=== PATIENT | female | born 1970 | race Caucasian/White ===

== ENCOUNTER 2021-01-14 03:29 | Emergency (ER) | payer OTHER ==
[2021-01-14] MEDS ORDERED: Acetaminophen 500 MG Tab PO ONE (03:51)
[2021-01-14] MEDS ORDERED: Bacitracin Oint 1 GM U/D Packet TOP ONE (03:51)
--- NOTE | 2021-01-14 03:57 | EDM.PDOC ---
ED HPI GENERAL MEDICAL PROBLEM - General Chief Complaint: Laceration Stated Complaint: FALL VIA [place] Time Seen by Provider: 01/14/21 03:40 Source of Information: Reports: Patient History Limitations: Reports: No Limitations - History of Present Illness INITIAL COMMENTS - FREE TEXT/NARRATIVE: Jazz is a 50-year-old female presenting to the ED via [facility] for evaluation of a laceration to her chin. The patient had been drinking tonight and lost consciousness causing her to fall down 3 steps in her house striking her face, chin, and chest on the floor. The patient sustained a laceration to the chin measuring a total of 3.2 cm in length with an open gaping wound 1.8 cm and the remainder being superficial and not through the dermis. The patient is also complaining of anterior chest pain over the sternum and bilateral breasts. The pain worsens with inspiration and with palpation of the chest. There is no pain with compression of the lateral chest bilaterally. Patient is very anxious, nervous, and upset. Patient is on Xarelto for factor V Leiden. She takes 10 mg of Xarelto daily. She denies any headache. chest pain Pain Score (Numeric/FACES): 9 - Related Data Allergies Allergy/AdvReac Type Severity Reaction Status Date / Time diphenhydramine Allergy Tachycardia Verified 01/14/21 03:33 [From Benadryl] Home Meds: Home Meds Rivaroxaban [Xarelto] 10 mg PO DAILY 01/14/21 [History] atenoloL [Atenolol] 25 mg PO ASDIRECTED PRN 01/14/21 [History] atenoloL [Atenolol] 25 mg PO BID 01/14/21 [History] ED ROS GENERAL - Review of Systems Review Of Systems: See Below Constitutional: Reports: No Symptoms HEENT: Reports: Other (3.2 cm laceration to the chin) Respiratory: Reports: No Symptoms Cardiovascular: Reports: Chest Pain (Bilateral anterior chest pain worsening with inspiration or with palpation of the anterior chest) Endocrine: Reports: No Symptoms GI/Abdominal: Reports: No Symptoms : Reports: No Symptoms Musculoskeletal: Reports: No Symptoms Skin: Reports: Wound (3.2 cm laceration to the chin) Neurological: Reports: Syncope (Patient is intoxicated and "blacked out" causing her to fall down 3 steps in her house.) Psychiatric: Reports: Anxiety Hematologic/Lymphatic: Reports: Other (Patient is Xarelto 10 mg daily for factor V Leiden deficiency) Immunologic: Reports: No Symptoms ED EXAM, SKIN/RASH Exam: See Below Exam Limited By: No Limitations General Appearance: Alert, Anxious, Mild Distress, Moderate Distress Eye Exam: Bilateral Eye: Conjunctival Injection, EOMI, PERRL Throat/Mouth: Normal Inspection, Normal Oropharynx, Normal Voice, No Airway Compromise Head: Normocephalic, Other (3.2 cm laceration to the chin with 1.8 cm being through the dermis and widely gapping in the remainder being superficial.) Neck: Normal Inspection, Supple Respiratory/Chest: No Respiratory Distress, Lungs Clear, Normal Breath Sounds, Other (Tenderness of the anterior chest to palpation. There is no crepitus. Compression of the lateral chest bilaterally does not elicit pain. Tenderness over both breasts.) Cardiovascular: Normal Peripheral Pulses, Regular Rate, Rhythm, No Murmur Peripheral Pulses: 2+: Radial (L), Radial (R) GI/Abdominal: Normal Bowel Sounds, Soft, Non-Tender Extremities: Normal Inspection, Normal Range of Motion Neurological: Alert, Oriented, Normal Cognition, No Motor/Sensory Deficits Psychiatric: Anxious Skin: Warm, Wound/Incision (Laceration to the chin measuring 3.2 cm with 1.8 cm being through the dermis and gapping widely and the remainder being superficial.) Location, Skin: Face (Chin) Characteristics: Linear ED SKIN PROCEDURES - Laceration/Wound Repair Midline Face Appearance: Subcutaneous (3.2 cm laceration with 1.8 cm being subcutaneous and the remainder being superficial), Mildly Contaminated Distal NVT: Neuro & Vascular Intact Anesthetic Type: Local Local Anesthesia - Lidocaine (Xylocaine): 1% with EPI Local Anesthetic Volume: 3cc Skin Prep: Other (Soap and water) Exploration/Debridement/Repair: Wound Explored, In a Bloodless Field, Explored to Base Closed with: Sutures, Dermabond Lac/Wound length In cm: 1.8 Suture Size: 5-0 # of Sutures: 5 Suture Type: Nylon, Interrupted Sterile Dressing Applied: Nurse Tetanus Status Addressed: Yes Complications: No Course - Vital Signs Last Recorded V/S: Last Vital Signs Temp 36.4 C 01/14/21 03:39 Pulse 71 01/14/21 03:39 Resp 15 01/14/21 03:39 BP 133/81 01/14/21 03:39 Pulse Ox 98 01/14/21 03:39 - Orders/Labs/Meds Orders: Active Orders 24 hr Category Date Time Status Vaccines to be Administered [RC] PER UNIT ROUTINE Care 01/14/21 04:02 Ordered Chest 2V [CR] Stat Exams 01/14/21 03:52 Ordered Hand Comp Min 3V Rt [CR] Stat Exams 01/14/21 04:11 Ordered Meds: Medications Discontinued Medications Generic Name Dose Route Start Last Admin Trade Name Shreyas PRN Reason Stop Dose Admin Acetaminophen 1,000 mg 01/14/21 03:51 01/14/21 03:59 Acetaminophen 500 Mg Tab PO 01/14/21 03:52 1,000 mg ONETIME ONE Administration Bacitracin 1 dose 01/14/21 03:51 01/14/21 03:59 Bacitracin Oint 1 Gm U/D Packet TOP 01/14/21 03:52 1 dose ONETIME ONE Administration Diphtheria/Tetanus/Acell Pertussis 0.5 ml 01/14/21 04:02 Diphtheria,Pertussis(Acell),Tetanus Vaccine 0.5 Ml Syringe IM 01/14/21 04:03 .ONCE ONE - Radiology Interpretation Free Text/Narrative:: I reviewed the two-view chest x-ray which shows no acute osseous abnormalities. There is no infiltrates or lung abnormalities. No evidence for pneumothorax. I reviewed the three-view x-ray of the left hand showing no acute osseous abnormalities. - Re-Assessments/Exams Free Text/Narrative Re-Assessment/Exam: 01/14/21 04:02 it appears that the patient has not had a tetanus booster since before 1977. We will booster this today. The sutures will need to be removed in 5 days which the patient can go to the clinic or return to the ER to have them removed. 01/14/21 04:41 x-ray of the chest and of the left hand were unremarkable for any osseous abnormalities. Is likely are both contusions. We discussed management of her pain with Tylenol, icing to reduce swelling, and rest. Departure - Departure Time of Disposition: 04:42 Disposition: Home, Self-Care 01 Clinical Impression: Fall down stairs Qualifiers: Encounter type: initial encounter Qualified Code(s): W10.8XXA - Fall (on) (from) other stairs and steps, initial encounter Laceration of skin of chin Qualifiers: Encounter type: initial encounter Qualified Code(s): S01.81XA - Laceration without foreign body of other part of head, initial encounter Contusion, chest wall Qualifiers: Encounter type: initial encounter Laterality: unspecified laterality Qualified Code(s): S20.219A - Contusion of unspecified front wall of thorax, initial encounter Contusion of left hand including fingers Qualifiers: Encounter type: initial encounter Qualified Code(s): S60.222A - Contusion of left hand, initial encounter; S60.00XA - Contusion of unspecified finger without damage to nail, initial encounter - Discharge Information Instructions: Fall Prevention in the Home, Adult, [id number], Laceration Care, Adult, [id number], Blunt Chest Trauma, Hand Contusion Referrals: PCP,None [Primary Care Provider] - Forms: ED Department Discharge Care Plan Goals: The laceration to your chin was repaired using 5 sutures and Dermabond. Please do not pick at the Dermabond it will wear off over the course of the next 5 to 7 days. The sutures in your chin will need to be removed in 5 days which can either be done at the [facility], the [facility] walk-in clinic, or you may return to the ER. In addition to the laceration of the chin, you also have sustained a significant contusion or bruising to your chest from your fall. Continue to take Tylenol for pain control. There was no evidence on your x-rays of any fracture. This will likely take 1 to 2 weeks to fully resolve. Ice may help lessen the swelling and pain. Sepsis Event Note (ED) - Evaluation Sepsis Screening Result: No Definite Risk - Focused Exam Vital Signs: Vital Signs Temp Pulse Resp BP Pulse Ox 01/14/21 03:39 36.4 C 71 15 133/81 98 01/14/21 03:37 36.4 C 71 15 133/81 98 - Problem List & Annotations (1) Contusion, chest wall SNOMED Code(s): 21988250 Code(s): S20.219A - CONTUSION OF UNSPECIFIED FRONT WALL OF THORAX, INIT ENCNTR Status: Acute Priority: Medium Current Visit: Yes Qualifiers: Encounter type: initial encounter Laterality: unspecified laterality Q ualified Code(s): S20.219A - Contusion of unspecified front wall of thorax, initial encounter (2) Fall down stairs SNOMED Code(s): 682861740 Code(s): W10.8XXA - FALL (ON) (FROM) OTHER STAIRS AND STEPS, INITIAL ENCOUNTER Status: Acute Priority: Medium Current Visit: Yes Qualifiers: Encounter type: initial encounter Qualified Code(s): W10.8XXA - Fall (on) (from) other stairs and steps, initial encounter (3) Laceration of skin of chin SNOMED Code(s): 17836026100850018, 37158143032981433 Code(s): S01.81XA - LACERATION W/O FOREIGN BODY OF OTH PART OF HEAD, INIT ENCNTR Status: Acute Priority: Medium Current Visit: Yes Qualifiers: Encounter type: initial encounter Qualified Code(s): S01.81XA - Laceration without foreign body of other part of head, initial encounter (4) Contusion of left hand including fingers SNOMED Code(s): 2789712 Code(s): S60.222A - CONTUSION OF LEFT HAND, INITIAL ENCOUNTER; S60.00XA - CONTUSION OF UNSP FINGER WITHOUT DAMAGE TO NAIL, INIT ENCNTR Status: Acute Priority: Medium Current Visit: Yes Qualifiers: Encounter type: initial encounter Qualified Code(s): S60.222A - Contusion of left hand, initial encounter; S60.00XA - Contusion of unspecified finger without damage to nail, initial encounter - Problem List Review Problem List Initiated/Reviewed/Updated: Yes - My Orders Last 24 Hours: My Active Orders 01/14/21 03:52 Chest 2V [CR] Stat 01/14/21 04:02 Vaccines to be Administered [RC] PER UNIT ROUTINE 01/14/21 04:11 Hand Comp Min 3V Rt [CR] Stat - Assessment/Plan Last 24 Hours: My Active Orders 01/14/21 03:52 Chest 2V [CR] Stat 01/14/21 04:02 Vaccines to be Administered [RC] PER UNIT ROUTINE 01/14/21 04:11 Hand Comp Min 3V Rt [CR] Stat
[2021-01-14] MEDS ORDERED: Diphtheria,Pertussis(Acell),Tetanus Vaccine 0.5 ML Syringe IM ONE (04:02)
--- NOTE | 2021-01-14 05:17 | CRLCR ---
For Patients: As a result of the Cures Act, medical imaging exams and procedure reports are released immediately into your electronic medical record. You may view this report before your referring provider. If you have questions, please contact your health care provider. INDICATION: Pain at the base of the thumb after fall. COMPARISON: None available. TECHNIQUE: The right hand is examined with PA, lateral, and oblique views. FINDINGS: There is no sign of fracture or dislocation. The soft tissues are normal in appearance without sign of radio-opaque foreign body. No degenerative disease is seen. IMPRESSION: Normal right hand. Dictated by Perico Ferrara MD @ 01/14/2021 5:16:23 AM (Electronically Signed)
--- NOTE | 2021-01-14 05:17 | CRLCR ---
For Patients: As a result of the Century Cures Act, medical imaging exams and procedure reports are released immediately into your electronic medical record. You may view this report before your referring provider. If you have questions, please contact your health care provider. INDICATION: Chest pain after fall. COMPARISON: None available. FINDINGS: PA and lateral views of the chest were obtained. The lungs are clear. No focal or diffuse infiltrates are present. The heart is normal in size. The mediastinum is normal in appearance. The osseous structures are normal in appearance for the patient`s age. IMPRESSION: Normal chest 2 views. Dictated by Perico Ferrara MD @ 01/14/2021 5:15:20 AM (Electronically Signed)
== END 2021-01-14 07:01 | disposition home or self-care (01) ==
LOC: JP.ED 03:29
DX: S01.81XA Laceration without foreign body of other part of head, initial encounter (principal); S20.212A Contusion of left front wall of thorax, initial encounter; S20.211A Contusion of right front wall of thorax, initial encounter; S60.222A Contusion of left hand, initial encounter; Z79.01 Long term (current) use of anticoagulants; Z88.8 Allergy status to other drugs, medicaments and biological substances; Z23 Encounter for immunization; W10.8XXA Fall (on) (from) other stairs and steps, initial encounter; W22.09XA Striking against other stationary object, initial encounter; Y92.009 Unspecified place in unspecified non-institutional (private) residence as the place of occurrence of the external cause
CPT/HCPCS: 12013; 71046; 73130; 90471; 90715; 99284; A9270

== ENCOUNTER 2021-04-16 12:52 | Emergency (ER) | payer OTHER ==
[2021-04-16] MEDS ORDERED: Alum Hydrox/Mag Hydrox/Simeth 15 ML, Lidocaine 2% 15 ML PO ONE ×2 (13:17)
--- NOTE | 2021-04-16 13:29 | EDM.PDOC ---
ED HPI GENERAL MEDICAL PROBLEM - General Chief Complaint: Abdominal Pain Stated Complaint: BLOOD COMING OUT OF HER MOUTH Time Seen by Provider: 04/16/21 12:55 Source of Information: Reports: Patient, Family History Limitations: Reports: No Limitations - History of Present Illness INITIAL COMMENTS - FREE TEXT/NARRATIVE: 50-year-old female who was in her normal state of health, suddenly had the taste of blood in her mouth, and spit up a small amount of blood. She then developed cramping and spasms in her upper abdomen which has lasted just over an hour. Still some mild nausea but no vomiting. She has panic attacks and is extremely anxious on arrival. She does have a history of gastric ulcers and is on no medications for her stomach. She is on Xarelto for "blood clots". She is a smoker. No shortness of breath or cough, no diarrhea or dark stools Onset: Sudden Location: Reports: Abdomen (Discomfort and is in her epigastric area of the abdomen) Quality: Reports: Pressure Severity: Mild Associated Symptoms: Reports: Malaise, Nausea/Vomiting (One episode of spitting up blood with nausea), Other (Extremely anxious). Denies: Confusion, Chest Pain, Cough, Fever/Chills Middle Abdomen Pain Score (Numeric/FACES): 8 - Related Data Allergies Allergy/AdvReac Type Severity Reaction Status Date / Time diphenhydramine Allergy Tachycardia Verified 01/14/21 03:33 [From Benadryl] Home Meds: Home Meds Rivaroxaban [Xarelto] 10 mg PO DAILY 01/14/21 [History] atenoloL [Atenolol] 25 mg PO ASDIRECTED PRN 01/14/21 [History] atenoloL [Atenolol] 25 mg PO BID 01/14/21 [History] Past Medical History HEENT History: Reports: Impaired Vision Other HEENT History: contact lenses Cardiovascular History: Reports: Hypertension, Other (See Below) Other Cardiovascular History: lower extremity edema Respiratory History: Reports: Asthma Musculoskeletal History: Reports: Fracture Psychiatric History: Reports: Anxiety Hematologic History: Reports: Anticoagulation Therapy, Other (See Below) Other Hematologic History: Factor five liden - Infectious Disease History Infectious Disease History: Reports: Chicken Pox - Past Surgical History Musculoskeletal Surgical History: Reports: Other (See Below) Other Musculoskeletal Surgeries/Procedures:: left foot Social & Family History - Tobacco Use Tobacco Use Status *Q: Current Every Day Tobacco User Years of Tobacco use: 2 Packs/Tins Daily: 0.5 - Caffeine Use Caffeine Use: Reports: Coffee - Recreational Drug Use Recreational Drug Use: No ED ROS GENERAL - Review of Systems Review Of Systems: See Below Constitutional: Reports: Malaise. Denies: Fever, Chills HEENT: Denies: Throat Pain Respiratory: Reports: No Symptoms Cardiovascular: Reports: No Symptoms GI/Abdominal: Reports: Abdominal Pain, Hematemesis, Nausea : Reports: No Symptoms Musculoskeletal: Reports: No Symptoms Skin: Reports: Diaphoresis (An episode of diaphoresis at home, resolved) Neurological: Denies: Headache Psychiatric: Reports: Anxiety ED EXAM, GI/ABD - Physical Exam Exam: See Below Exam Limited By: No Limitations General Appearance: Alert, Anxious Eyes: Bilateral: Normal Appearance (No jaundice, well hydrated) Ears: Normal TMs Throat/Mouth: Normal Inspection, Other (No lesion or evidence of bleeding in the throat) Head: Atraumatic Neck: No: Lymphadenopathy (R), Lymphadenopathy (L) Respiratory/Chest: No Respiratory Distress, Lungs Clear Cardiovascular: Regular Rate, Rhythm GI/Abdominal Exam: Normal Bowel Sounds, Soft, Tender (Reacts with some tenderness directly over the epigastric area but no guarding or rebound, no pain over the lower abdomen) Extremities: Normal Inspection Neurological: Alert, Oriented, No Motor/Sensory Deficits Psychiatric: Anxious Skin Exam: Warm, Dry Course - Vital Signs Last Recorded V/S: Last Vital Signs Temp 97.9 F 04/16/21 13:04 Pulse 73 04/16/21 13:04 Resp 18 04/16/21 13:04 BP 141/87 H 04/16/21 13:04 Pulse Ox 99 04/16/21 13:04 - Orders/Labs/Meds Labs: Laboratory Tests 04/16/21 04/16/21 Range/Units 13:35 13:35 WBC 6.0 (4.5-11.0) K/uL RBC 4.76 (3.30-5.50) M/uL Hgb 16.4 H (12.0-15.0) g/dL Hct 45.4 (36.0-48.0) % MCV 95 (80-98) fL MCH 35 H (27-31) pg MCHC 36 (32-36) % Plt Count 195 (150-400) K/uL Neut % (Auto) 72.0 H (36-66) % Lymph % (Auto) 16.9 L (24-44) % [place] % (Auto) 9.2 H (2-6) % Eos % (Auto) 1.2 L (2-4) % Baso % (Auto) 0.7 (0-1) % Sodium 132 L (140-148) mmol/L Potassium 4.1 (3.6-5.2) mmol/L Chloride 95 L (100-108) mmol/L Carbon Dioxide 25 (21-32) mmol/L Anion Gap 16.1 H (5.0-14.0) mmol/L BUN 9 (7-18) mg/dL Creatinine 0.8 (0.6-1.0) mg/dL Est Cr Clr Drug Dosing 84.87 mL/min Estimated GFR (MDRD) > 60 (>60) Glucose 122 H (74-106) mg/dL Calcium 8.9 (8.5-10.1) mg/dL Lipase 100 (73-393) U/L Meds: Medications Discontinued Medications Generic Name Dose Route Start Last Admin Trade Name Freq PRN Reason Stop Dose Admin Al Hydroxide/Mg Hydroxide 15 0 ml 04/16/21 13:17 04/16/21 13:25 ml/ Lidocaine HCl 15 ml PO 04/16/21 13:18 30 ml ONETIME ONE Administration - Re-Assessments/Exams Free Text/Narrative Re-Assessment/Exam: 04/16/21 14:15 Patient had complete and instant relief with a GI cocktail. She had no further nausea or vomiting. I recommended she take 40 mg of Prilosec daily for 5 days, then 20 mg a day for 1 full month. She should recheck with her primary provider in the next 1 to 2 weeks to consider a hemoglobin rechecked. She can return to the emergency room at any time if dark stools, persistent emesis, pallor or lightheaded feelings. 04/16/21 16:20 White count was 6000, hemoglobin 16.4, chemistry profile was reassuring including a BUN which was normal which goes against any long standing GI bleed. Departure - Departure Time of Disposition: 14:24 Disposition: Home, Self-Care 01 Clinical Impression: Hematemesis Qualifiers: Nausea presence: with nausea Qualified Code(s): K92.0 - Hematemesis - Discharge Information Instructions: Hematemesis Referrals: PCP,None [Primary Care Provider] - Forms: ED Department Discharge Care Plan Goals: Take 40 mg of omeprazole daily for 7 days, then 20 mg daily for another 2 weeks. Return to the emergency room at any time if you are worsening such as pallor, dizzy or lightheaded, dark stools or concerns of continued bleeding. Otherwise recheck with your regular provider in 1 to 2 weeks to consider a hemoglobin recheck and discuss any further evaluation that may be necessary. Sepsis Event Note (ED) - Evaluation Sepsis Screening Result: No Definite Risk - Focused Exam Vital Signs: Vital Signs Temp Pulse Resp BP Pulse Ox 04/16/21 13:04 97.9 F 73 18 141/87 H 99
== END 2021-04-16 14:25 | disposition home or self-care (01) ==
LOC: JP.ED 12:52
DX: K92.0 Hematemesis (principal); I10 Essential (primary) hypertension; Z72.0 Tobacco use; Z88.8 Allergy status to other drugs, medicaments and biological substances; Z79.01 Long term (current) use of anticoagulants; Z79.899 Other long term (current) drug therapy
CPT/HCPCS: 36415; 80048; 83690; 85025; 99284; A9270

== ENCOUNTER 2023-06-25 14:51 | Emergency (ER) | payer OTHER ==
[2023-06-25] MEDS ORDERED: Erythromycin Base 0.5% Ophth Oint 3.5 GM Tube EYELF ONE (18:09)
[2023-06-25] MEDS: Proparacaine 0.5% Ophth Soln 15 ML Bottle EYELF ONE (18:27)
[2023-06-25] MEDS: Ofloxacin 0.3% Ophth Soln 5 ML Bottle EYELF ONE (18:54)
== END 2023-06-25 19:11 | disposition home or self-care (01) ==
LOC: JP.ED 14:51
DX: H16.002 Unspecified corneal ulcer, left eye (principal); I10 Essential (primary) hypertension; F17.210 Nicotine dependence, cigarettes, uncomplicated; Z88.8 Allergy status to other drugs, medicaments and biological substances; Z79.899 Other long term (current) drug therapy; Z86.19 Personal history of other infectious and parasitic diseases
CPT/HCPCS: 99283; A9270